=== PATIENT | female | born 1985 | race Two or more races ===

== ENCOUNTER 2025-04-08 19:07 | Emergency (ER) | payer MEDICAID, SELFPAY ==
--- NOTE | 2025-04-08 19:30 | XR_ITS ---
Examination: CT abdomen and pelvis without contrast. Coronal 3-D reconstructions. Sagittal 2-D reconstructions. Date and time of exam:April 08, 20252008 hours MEDICATIONS: Right flank pain beginning one month ago CTDI: vol (mGy): 7.94 DLP: (mGycm): 437 Technique: Axial images of the abdomen have been obtained, 3 mm slice thickness Intravenous contrast material has not been administered. Low dose protocols were performed. One or more of the following dose reduction techniques were used; automated exposure control, adjustment of the mA and/or KV according to patient size, use of iterative reconstruction technique. Findings: Pneumobilia versus splenic lesions Gallstones No pancreatic or adrenal mass No renal or ureteral calculi, no hydronephrosis Aorta normal size 25 mm fat-containing umbilical hernia Normal appendix No bowel obstruction No diverticulitis Anteverted uterus Urinary bladder wall thickening up to 4 mm Moderate disc narrowing L5-S1 IMPRESSION: No renal or ureteral calculi, no hydronephrosis Normal appendix No bowel obstruction diverticulitis or free air No bladder mass or bladder calculi Mild cystitis pattern
--- NOTE | 2025-04-08 19:32 | PD.EDRME ---
Rapid Medical Screening Exam E Arrival date/time: 04/08/25 19:07 40-year-old female presents to the ED with complaint of right flank pain x 2 days. Past medical history includes a kidney infection as per patient. She is taking antibiotics for the infection. Chief Complaint: Abdominal Pain Vital signs reviewed by provider: Yes
[2025-04-08 19:34] VITALS: BP 112/70; PULSE 73; RESP 18; TEMP 37; O2SAT 99; BMI 27.1
[2025-04-08] MEDS: KETOROLAC INJ 60 MG/2 ML VIAL 30 MG IM (19:41)
[2025-04-08 19:53] LABS: Basophils % (Auto) 0 % (0-2.5); Eosinophils # (Auto) 0.1 Thou/mm3 (0.0-0.5); Eosinophils % (Auto) 1 % (0-10); Hematocrit 38.4 % (36.0-46.0); Hemoglobin 13.2 g/dL (12.0-16.0); Immature Granulocytes % (Auto) 0 % (0-0); Immature Granulocytes Auto 0.01 Thou/mm3 (0.00-0.00); Lymphocytes # (Auto) 3.1 Thou/mm3 (1.0-4.8); Lymphocytes % (Auto) 41 % (10-50); Mean Corpuscular HGB Conc 34.4 g/dl (31.0-37.0); Mean Corpuscular Volume 90 fL (80-100); Monocytes # (Auto) 0.4 Thou/mm3 (0.0-0.8); Monocytes % (Auto) 6 % (0-12); Neutrophils % (Auto) 52 % (37-80); Nucleated Red Blood Cell % 0 /100 WBC (0); Platelet Count 241 Thou/mm3 (140-440); RDW Standard Deviation 39.9 fL (36.4-46.3); Red Blood Count 4.26 Miln/mm3 (4.00-5.20); White Blood Count 7.7 Thou/mm3 (3.6-11.0)
[2025-04-08 20:09] LABS: Alanine Aminotransferase 21 U/L (10-49); Albumin, Serum 4.7 gm/dL (3.5-5.0); Alkaline Phosphatase 83 U/L (46-116); Anion Gap 7 (7-16); Aspartate Amino Transferase 26 U/L (0-34); BUN/Creatinine Ratio 17 Ratio (12-20); Bilirubin,Total 0.4 mg/dL (0.3-1.2); Blood Urea Nitrogen 12 mg/dL (9-23); Calcium 9.6 mg/dL (8.3-10.6); Calcium (Corrected) 9.6 mg/dL (8.5-10.1); Carbon Dioxide 27.6 mMol/L (20.0-31.0); Chloride 102 mMol/L (98-107); Creatinine (Component) 0.7 mg/dL (0.6-1.3); Estimated Creatinine Clearance 111.4 mL/min (>60); Globulin 2.4 gm/dL (2.3-3.5); Glucose 99 mg/dL (74-106); Lipase 46 U/L (12-53); Osmolality,Calculated 273 (275-295); Potassium 3.7 mMol/L (3.4-5.1); Sodium 137 mMol/L (136-145); Total Protein 7.1 gm/dL (5.7-8.2); eGFR > 60 See Note
[2025-04-08 20:48] LABS: Collection Type, Urine Clean Catch; WBC,Urine 0 /hpf (0-5)
[2025-04-08 21:23] LABS: Bacteria,Urine Rare; Bilirubin,Urine Negative (Negative); Blood,Urine Trace (Negative); Clarity,Urine Clear (Clear/Hazy); Color,Urine Colorless (Lt Yel-Yel); Glucose, Urine Negative (Negative); Ketones,Urine Negative (Negative); Leukocyte Esterase,Urine Negative (Negative); Nitrite,Urine Negative (Negative); PH,Urine 7.5 (5.0-7.0); Protein,Urine Negative (Neg - Trace); RBC,Urine < 1 /hpf (0-3); Specific Gravity,Urine 1.011 (1.001-1.035); Squamous Epithelial Cell,Urine 3 /hpf (0-5); Urobilinogen,Urine Negative mg/dL (0.0-1.0)
[2025-04-08 21:27] LABS: HCG Qualitative,Urine Negative
--- NOTE | 2025-04-08 21:41 | PD.EDABDPN ---
ED Abdominal Pain RME/HPI General Chief Complaint: Abdominal Pain Stated complaint: BURNING ABD PAIN RADIATE TO BACK; SHAKING SOB Time seen by provider: 04/08/25 21:41 Arrival date/time: 04/08/25 19:07 Source: patient Limitations: no limitations RME / HPI RME / HPI narrative: 04/08/25 19:07 40-year-old female presents to the ED with complaint of right flank pain x 2 days. Past medical history includes a kidney infection as per patient. She is taking antibiotics for the infection. MD complaint: flank pain (Right flank) Onset (ago): day(s) (X2 days) Related Data Home Medications ?Medication ?Instructions ?Recorded ?Confirmed No Known Home Medications 05/12/19 05/12/19 Allergies Allergy/AdvReac Type Severity Reaction Status Date / Time No Known Allergies Allergy Verified 04/08/25 19:11 Review of Systems Review of Systems Systems Reviewed: All systems reviewed, normal except as documented Constitutional Constitutional: Reports system reviewed and no additional complaints, except as documented Eyes Eyes: Reports system reviewed and no additional complaints, except as documented, Denies dry eyes, Denies exophthalmos and Reports floaters Cardiovascular Cardiovascular: Reports system reviewed and no additional complaints, except as documented, Denies chest pain with activity and Denies claudication Respiratory Respiratory: Reports system reviewed and no additional complaints, except as documented and Reports as per HPI Gastrointestinal Gastrointestinal: Reports system reviewed and no additional complaints, except as documented and Reports as per HPI Genitourinary Genitourinary: Reports system reviewed and no additional complaints, except as documented, Reports as per HPI and Reports other Comments: Flank pain Musculoskeletal Musculoskeletal: Reports system reviewed and no additional complaints, except as documented and Reports as per HPI Integumentary/Breasts Skin/Breast: Reports system reviewed and no additional complaints, except as documented and Reports as per HPI Past Medical History Past Medical History Comments PMH COMMENT: Patient's past medical history includes urinary tract infection. ED Exam General Limitations: Present no limitations General appearance: Present alert and in no apparent distress Head Head exam: Present atraumatic Eye Eye exam: Present normal appearance, PERRL and EOMI ENT ENT exam: Present normal exam, normal oropharynx and mucous membranes moist Neck Neck exam: Present normal inspection, full ROM and trachea midline Chest Chest inspection: Present normal inspection and symmetric chest wall rise Respiratory Respiratory exam: Present normal lung sounds bilaterally Cardiovascular Cardiovascular exam: Present regular rate, normal rhythm and normal heart sounds Abdominal Exam Abdominal exam: Present soft (The abdomen is soft nontender and symmetrical there is no apparent masses no guarding and negative for rebound tenderness.) and normal bowel sounds Abdominal tenderness: Present moderate Rectal Exam Rectal exam: Present deferred Extremities Exam Extremities exam: Present normal inspection and full ROM Back Exam Back exam: Present normal inspection and full ROM Neurological Exam Neurological exam: Present alert, oriented X3 and CN II-XII intact Psychiatric Psychiatric exam: Present normal affect and normal mood Skin Skin exam: Present warm, dry, intact and normal color Course Course Course Narrative: Patient will have Toradol 30 mg IM as well as a flank pain workup to include a CT of the abdomen and pelvis which returned negative. Note that the CBC and the CMP as well as the UA were also negative. Patient will be discharged in no apparent distress. Quality Measures none Orders Category Date Time Status CT abdomen pelvis wo con Stat Exams 04/08/25 19:30 Completed CBC Stat Lab 04/08/25 19:39 Completed Comprehensive Metabolic Panel Stat Lab 04/08/25 19:39 Completed HCG Qualitative,Urine Stat Lab 04/08/25 20:10 Completed Lipase Stat Lab 04/08/25 19:39 Completed Urinalysis Stat Lab 04/08/25 20:10 Completed Ketorolac Inj [Toradol Inj] Med 04/08/25 19:31 Discontinued 30 mg IM X1 ONE Vital Signs Vital signs: Vital Signs Temperature 98.6 F 04/08/25 19:34 Pulse Rate 73 04/08/25 19:34 Respiratory Rate 18 04/08/25 19:34 Blood Pressure 112/70 04/08/25 19:34 Pulse Oximetry (%) 99 04/08/25 19:34 Oxygen Delivery Method Room Air 04/08/25 19:34 Pulse ox 99% room air. Abdominal Pain MDM MDM Narrative MDM Narrative:: Patient will be discharged in no apparent distress. She is to continue her antibiotics as prescribed. She has to follow-up with primary care physician in 1 week. She is to return here if worse or not better. Patient data External records reviewed:: Other (specify) Clinical information provided by:: patient Social determinants that could affect healthcare access:: none Patient has the following chronic illnesses:: N/A How is presenting disease/condition affected by chronic disease/condition?: no chronic disease Evaluation data The following diagnostics were reviewed and interpreted by me:: lab results and radiology exam(s) Lab and/or radiology exams considered but not ordered:: Labs reviewed by me and related to patient. Interpretation Summary: N/A Medications / Prescriptions Medications or Prescriptions considered but not ordered:: N/A Medication administrations:: Medication Administration History Discontinued Medications Ketorolac Tromethamine (Ketorolac Inj 60 Mg/2 Ml Vial) 30 mg IM X1 ONE Stop: 04/08/25 19:32 Last Admin: 04/08/25 19:41 Dose: 30 mg Documented By: Given Consultations Consultation(s) initiated? (list below): No Diagnosis Differential diagnosis abdominal pain: abdominal pain, acute appendicitis and calculus of kidney Most likely diagnosis given after review of the tests above:: N/A Admission Indicated Admission indicated?: not indicated Admission Request Was there a request for admission?: No Disposition Plan Disposition Plan: Discharge Discharge Attestation Discharge Attestation: The patient and all family members were given an opportunity to ask questions and understood the discharge instructions. Discharge instructions specifically effects, indications for sooner follow up or return to the emergency department, and the expected course of current diagnosis. Patient condition: Stable Discharge Plan Plan Patient Disposition: HOME (Self Care) Discharge Disposition comment: Patient will be discharged no apparent distress Patient condition on transfer: Stable Prescriptions/Referrals Prescriptions/Med Rec: No Action No Known Home Medications Referrals: Kaye Manuel FNP ([email or web address]) [Primary Care Provider] - In 1 week Problem List Clinical Impression: Abdominal pain Patient/Caregiver Discharge Instructions Education Materials: Abdominal Pain Print Language: Greek NEGRITO/SERGEY Supervising Physician MAGEN Supervising Physician: ian
== END 2025-04-08 22:10 | disposition home or self-care (01) ==
PROVIDERS: Physician Assistant; Emergency Provider Emergency Medicine; PCP Nurse Practitioner Primary Care
DX: R10.9 Unspecified abdominal pain (principal)
CPT/HCPCS: 36415; 74176; 80053; 81001; 81025; 83690; 85025; 96372; 99284; J1885

== ENCOUNTER → 2025-09-29 | Outpatient (CLI) | payer MEDICAID, SELFPAY ==
--- NOTE | 2025-09-29 13:30 | XR_ITS ---
Examination: Abdomen sonogram, complete Date and time of exam: September 29, 2025, 1324 hours INDICATIONS: Cholelithiasis on CT examination April 08, 2025, history abdominal pain epigastric pain. Technique: Multiple real-time grayscale transabdominal sonographic images of the abdomen have been obtained. Findings: Multiple gallstones Normal gallbladder wall 0.2 cm Common bile duct 0.3 cm Pancreatic head 3.1 cm Aorta not enlarged Liver 14 cm fatty infiltration Normal hepatopetal portal venous flow Patent IVC Right kidney 10.8 cm renal cortex 1.8 cm Left kidney 10.7 cm renal cortex 1.9 cm Mild renal scarring Spleen 12.2 cm IMPRESSION: Cholelithiasis, negative for cholecystitis
== END | disposition home or self-care (01) ==
PROVIDERS: PCP Nurse Practitioner Primary Care; Referring Provider Nurse Practitioner Primary Care; Visit Provider Nurse Practitioner Primary Care
DX: K80.20 Calculus of gallbladder without cholecystitis without obstruction (principal)
CPT/HCPCS: 76700